=== PATIENT | female | born 1950 | race Caucasian/White ===

== ENCOUNTER 2016-12-05 14:47 | Outpatient (CLI) | payer MEDICARE | END 2016-12-05 14:48 | disposition home or self-care (01) | DX: I10 Essential (primary) hypertension (principal) ==

== ENCOUNTER 2016-12-31 15:22 | Outpatient (CLI) | payer MEDICARE | END 2016-12-31 15:23 | disposition home or self-care (01) | DX: R06.02 Shortness of breath (principal); Z98.890 Other specified postprocedural states ==

== ENCOUNTER 2017-01-27 11:24 | Outpatient (CLI) | payer MEDICARE | END 2017-01-27 11:25 | disposition home or self-care (01) | LOC: DI 11:24 | PROVIDERS: ATTEND Physician Assistant Medical | DX: R06.02 Shortness of breath (principal); D47.3 Essential (hemorrhagic) thrombocythemia; I25.810 Atherosclerosis of coronary artery bypass graft(s) without angina pectoris; I51.7 Cardiomegaly | CPT/HCPCS: 93306 ==

== ENCOUNTER 2017-07-15 21:08 | Outpatient (CLI) | payer MEDICARE | END 2017-07-15 21:09 | disposition short-term general hospital (02) | LOC: EMS 21:08 | PROVIDERS: ATTEND Surgery | DX: K92.1 Melena (principal) | CPT/HCPCS: A0425; A0429 ==

== ENCOUNTER 2017-10-14 21:09 | Outpatient (CLI) | payer MEDICARE | END 2017-10-14 21:10 | disposition short-term general hospital (02) | LOC: EMS 21:09 | PROVIDERS: ATTEND Surgery | DX: R06.00 Dyspnea, unspecified (principal); R05 Cough | CPT/HCPCS: A0170; A0425; A0427 ==